=== PATIENT | female | born 1955 | race Caucasian/White ===

== ENCOUNTER 2018-08-04 18:04 | Emergency (ER) | payer BC ==
[2018-08-04] MEDS ORDERED: NORMAL SALINE 1000 ML 1,000 ML IV ONE (19:59)
--- NOTE | 2018-08-04 20:01 | ER Document Report ---
ED Medical Screen (RME) - General Chief Complaint: Abdominal Pain Stated Complaint: ABDOMINAL PAIN Time Seen by Provider: 08/04/18 19:49 Mode of Arrival: Ambulatory Information source: Patient Notes: This is a 62-year-old female with a history of hypertension, dyslipidemia who presents to the emergency room with 1 day history of lower abdominal pain. Patient denies any constipation. She denies fever. She denies any recent illnesses. Her last colonoscopy was 2 years ago and was relatively uneventful. Her last period was 6 years ago. She denies any vaginal bleeding or vaginal discharge. She denies any history of ovarian cyst. She denies any history of kidney stones. She has had her appendix taken out in childhood. She does look uncomfortable in triage. TRAVEL OUTSIDE OF THE [place] IN LAST 30 DAYS: No - Related Data Allergies/Adverse Reactions: No Known Allergies Allergy (Verified 08/04/18 18:05) Past Medical History - Social History Chew tobacco use (# tins/day): No Frequency of alcohol use: Social Drug Abuse: None - Past Medical History Cardiac Medical History: Reports: Hx Hypertension Renal/ Medical History: Reports: Hx Kidney Stones. Denies: Hx Peritoneal Dialysis Past Surgical History: Reports: Hx Appendectomy Physical Exam - Vital signs Vitals: Temp Pulse Resp BP Pulse Ox 98.2 F 105 H 16 116/76 99 08/04/18 18:08 08/04/18 18:08 08/04/18 18:08 08/04/18 18:08 08/04/18 18:08 Course - Vital Signs Vital signs: Temp Pulse Resp BP Pulse Ox 98.2 F 105 H 16 116/76 99 08/04/18 18:08 08/04/18 18:08 08/04/18 18:08 08/04/18 18:08 08/04/18 18:08
[2018-08-04 20:32] LABS: ABSOLUTE BASOPHILS # (AUTO) 0.1 10^3/uL (0.0-0.2); ABSOLUTE EOSINOPHILS # (AUTO) 0.2 10^3/uL (0.0-0.6); ABSOLUTE LYMPHOCYTES (AUTO) 2.3 10^3/uL (0.5-4.7); ABSOLUTE MONOCYTES (AUTO) 0.8 10^3/uL (0.1-1.4); ABSOLUTE NEUT (AUTO) 7.7 10^3/uL (1.7-8.2); BASOPHILS % (AUTO) 0.6 % (0-2); EOSINOPHILS % (AUTO) 1.4 % (0-6); HEMATOCRIT 40.7 % (36.0-47.0); HEMOGLOBIN 14.1 g/dL (12.0-15.5); LYMPHOCYTES % (AUTO) 21.2 % (13-45); MEAN CORPUSCULAR HEMOGLOBIN 30.6 pg (27.0-33.4); MEAN CORPUSCULAR HGB CONC 34.5 g/dL (32.0-36.0); MEAN CORPUSCULAR VOLUME 89 fl (80-97); MONOCYTES % (AUTO) 6.9 % (3-13); PLATELET COUNT 381 10^3/uL (150-450); RED BLOOD COUNT 4.59 10^6/uL (3.72-5.28); RED CELL DISTRIBUTION WIDTH 13.1 % (11.5-14.0); SEGMENTED NEUTROPHILS % (AUTO) 69.9 % (42-78); TOTAL CELLS COUNTED % (AUTO) 100 %
[2018-08-04 20:45] LABS: ALANINE AMINOTRANSFERASE 27 U/L (9-52); ALBUMIN 4.7 g/dL (3.5-5.0); ALKALINE PHOSPHATASE 67 U/L (38-126); ANION GAP 9 (5-19); APPEARANCE,URINE SLIGHTLY-CLOUDY; ASPARTATE AMINO TRANSFERASE 21 U/L (14-36); BILIRUBIN,DIRECT 0.2 mg/dL (0.0-0.4); BILIRUBIN,TOTAL 0.6 mg/dL (0.2-1.3); BILIRUBIN,URINE NEGATIVE (NEGATIVE); BLOOD UREA NITROGEN 14 mg/dL (7-20); CALCIUM 9.5 mg/dL (8.4-10.2); CARBON DIOXIDE 30 mmol/L (22-30); CHLORIDE 100 mmol/L (98-107); COLOR,URINE YELLOW; GLUCOSE 103 mg/dL (75-110); GLUCOSE, URINE NEGATIVE (NEGATIVE); KETONES,URINE NEGATIVE (NEGATIVE); LEUKOCYTE ESTERASE,URINE NEGATIVE (NEGATIVE); LIPASE 143.7 U/L (23-300); NITRITE,URINE NEGATIVE (NEGATIVE); POTASSIUM 3.8 mmol/L (3.6-5.0); PROTEIN,URINE NEGATIVE (NEGATIVE); SODIUM 138.9 mmol/L (137-145); TOTAL PROTEIN 7.2 g/dL (6.3-8.2); URINE SPECIFIC GRAVITY 1.017; UROBILINOGEN,URINE NEGATIVE mg/dL (<2.0)
[2018-08-04] MEDS ORDERED: MORPHINE SULFATE 10 MG/ML INJ IV ONE (21:42)
[2018-08-04] MEDS ORDERED: ONDANSETRON HCL INJ/PF 4 MG/2 ML SDV IV ONE (21:42)
--- NOTE | 2018-08-04 22:25 | RADIOLOGY REPORT (SQ) ---
EXAM DESCRIPTION: CT ABDOMEN PELVIS WITH IV CONTRAST COMPLETED DATE/TME: 08/04/2018 21:42 CLINICAL HISTORY: 62 years, Female, left lower abd pain COMPARISON: None. TECHNIQUE: 735 Images stored on PACS. All CT scanners at this facility use dose modulation, iterative reconstruction, and/or weight based dosing when appropriate to reduce radiation dose to as low as reasonably achievable (ALARA). [facility]: Dose Right [facility]: CareDose [facility]: Dose Right [facility]: Teradose 4D [facility]: [employer] LIMITATIONS: None. FINDINGS: Limited evaluation of the lung bases is unremarkable. Osseous structures are grossly intact. Mild fatty infiltrative change to the liver. Simple appearing cyst in the left hepatic lobe. The spleen, adrenal glands, pancreas, kidneys are unremarkable. No gross evidence for bowel obstruction. Wall thickening of the sigmoid colon with surrounding inflammatory changes. Multiple diverticuli are also present. There is redundancy of the sigmoid colon. Findings are consistent with acute sigmoid diverticulitis. No discrete abscess. The appendix is not well seen. No pericecal inflammation. No free air or free fluid. IMPRESSION: Acute sigmoid diverticulitis. Continued follow-up recommended to ensure resolution. TECHNICAL DOCUMENTATION: Quality ID # [id number]: Final reports with documentation of one or more dose reduction techniques (e.g., Automated exposure control, adjustment of the mA and/or kV according to patient size, use of iterative reconstruction technique) copyright 2011 [employer]- All Rights Reserved
--- NOTE | 2018-08-04 22:53 | ER Document Report ---
ED General - General Chief Complaint: Abdominal Pain Stated Complaint: ABDOMINAL PAIN Time Seen by Provider: 08/04/18 19:49 Mode of Arrival: Ambulatory Notes: RME note: This is a 62-year-old female with a history of hypertension, dyslipidemia who presents to the emergency room with 1 day history of lower abdominal pain. Patient denies any constipation. She denies fever. She denies any recent illnesses. Her last colonoscopy was 2 years ago and was relatively uneventful. Her last period was 6 years ago. She denies any vaginal bleeding or vaginal discharge. She denies any history of ovarian cyst. She denies any history of kidney stones. She has had her appendix taken out in childhood. She does look uncomfortable in triage. Upon my examination patient has generalized left lower abdominal pain. She co ntinues to deny any nausea or vomiting. Patient states she does feel as though she may have been constipated for the last couple of days. States she did start taking Dulcolax yesterday and has had diarrhea ever since. Patient states she had a subjective fever today. Patient is denying any dysuria or vaginal discharge. TRAVEL OUTSIDE OF THE [place] IN LAST 30 DAYS: No - Related Data Allergies/Adverse Reactions: No Known Allergies Allergy (Verified 08/04/18 18:05) Past Medical History - General Information source: Patient - Social History Smoking Status: Never Smoker Chew tobacco use (# tins/day): No Frequency of alcohol use: Social Drug Abuse: None Family History: Reviewed & Not Pertinent Patient has suicidal ideation: No Patient has homicidal ideation: No - Past Medical History Cardiac Medical History: Reports: Hx Hypertension Renal/ Medical History: Reports: Hx Kidney Stones. Denies: Hx Peritoneal Dialysis Past Surgical History: Reports: Hx Appendectomy Review of Systems - Review of Systems Constitutional: See HPI EENT: No symptoms reported Cardiovascular: No symptoms reported Respiratory: No symptoms reported Gastrointestinal: See HPI Genitourinary: See HPI Female Genitourinary: See HPI Musculoskeletal: No symptoms reported Skin: No symptoms reported Hematologic/Lymphatic: No symptoms reported Neurological/Psychological: No symptoms reported Physical Exam - Vital signs Vitals: Temp Pulse Resp BP Pulse Ox 98.2 F 105 H 16 116/76 99 08/04/18 18:08 08/04/18 18:08 08/04/18 18:08 08/04/18 18:08 08/04/18 18:08 - Notes Notes: GENERAL: Alert, interacts well. Appears to be in pain with her hand over her left lower abdomen HEAD: Normocephalic, atraumatic. EYES: Pupils equal, round, and reactive to light. Extraocular movements intact. ENT: Oral mucosa moist, tongue midline. NECK: Full range of motion. Supple. Trachea midline. LUNGS: Clear to auscultation bilaterally, no wheezes, rales, or rhonchi. No re spiratory distress. HEART: Regular rate and rhythm. No murmur ABDOMEN: Soft, no McBurney's point tenderness, no Mathew sign noted. Non- distended. Bowel sounds present in all 4 quadrants. Generalized left lower abdominal pain EXTREMITIES: Moves all 4 extremities spontaneously. No edema, normal radial and dorsalis pedis pulses bilaterally. No cyanosis. BACK: no cervical, thoracic, lumbar midline tenderness. No saddle anesthesia, normal distal neurovascular exam. No CVA tenderness noted bilaterally NEUROLOGICAL: Alert and oriented x3. Normal speech. cranial nerves II through XII grossly intact PSYCH: Flat affect, normal mood. SKIN: Warm, dry, normal turgor. No rashes or lesions noted. Course - Re-evaluation Re-evalutation: 08/04/18 22:53 Patient does have a leukocytosis of 11.0. No signs of anemia no signs of electrolyte abnormalities, no signs of urinary tract infection. Patient CT does show sigmoid diverticulitis. Discussed this at length with patient at bedside. Patient states pain has since resolved with treatments in the emergency room. Discussed close follow-up with gastroenterology. Patient stable for discharge. - Vital Signs Vital signs: Temp Pulse Resp BP Pulse Ox 98.2 F 89 20 135/91 H 100 08/04/18 21:44 08/04/18 21:44 08/04/18 21:44 08/04/18 21:44 08/04/18 21:44 - Laboratory Result Diagrams: 08/04/18 20:20 08/04/18 20:20 Laboratory results interpreted by me: 08/04/18 20:20 WBC 11.0 H Discharge - Discharge Clinical Impression: Sigmoid diverticulitis Condition: Stable Disposition: HOME, SELF-CARE Instructions: Diverticulitis ([facility]), Ciprofloxacin ([facility]), Oral Narcotic Medication ([facility]) Additional Instructions: As we discussed you have been seen and treated in the emergency department for diverticulitis. Please take antibiotics as prescribed. Please continue to take pain medication and nausea medications as needed. Please return to the emergency room for any other concerning symptoms. Please follow-up with gastroenterology. Prescriptions: Ciprofloxacin HCl [Cipro 500 mg Tablet] 500 mg PO BID #20 tablet Hydrocodone/Acetaminophen [Byron 5-325 mg Tablet] 1 - 2 tab PO Q4 #10 tablet Metronidazole [Flagyl] 500 mg PO TID 7 Days #14 tablet Ondansetron [Zofran Odt 4 mg Tablet] 1 - 2 tab PO Q4H PRN #15 tab.rapdis PRN Reason: For Nausea/Vomiting
[2018-08-04] MEDS ORDERED: CIPROFLOXACIN HCL 500 MG TABLET PO ONE (23:01)
[2018-08-04] MEDS ORDERED: METRONIDAZOLE 500 MG TABLET PO ONE (23:01)
[2018-08-04 23:14] VITALS: BP 126/85
== END 2018-08-04 23:25 | disposition home or self-care (01) ==
LOC: ER 18:04
DX: K57.32 Diverticulitis of large intestine without perforation or abscess without bleeding (principal); R10.32 Left lower quadrant pain; I10 Essential (primary) hypertension; Z90.49 Acquired absence of other specified parts of digestive tract; D72.829 Elevated white blood cell count, unspecified
CPT/HCPCS: 99284; 96361; 96374; 96375; 36415; 83690; 85025; 80053; 81001; 74177; J2270; J2405; J7030